=== PATIENT | male | born 1965 | race Caucasian/White ===

== ENCOUNTER 2017-07-19 15:11 | Inpatient (IN) | payer MEDICAID ==
[~2017-07-19] VITALS: Ht 177.8 cm; Wt 81.6 kg
[2017-07-19] MEDS ORDERED: ASPIRIN 81MG TABLET PO ONE (20:00)
[2017-07-19] MEDS ORDERED: NITROGLYCERIN OINT 1GM/INCH UDPKT TD ONE (20:00)
[2017-07-19 20:32] LABS: BASOPHILS % 0.5 % (0.0-2.0); EOSINOPHILS % 0.7 % (0.0-5.0); HEMATOCRIT. 49.5 % (42.0-52.0); HEMOGLOBIN. 16.7 g/dL (14.0-18.0); LYMPHOCYTES % 25.8 % (20.0-50.0); MEAN CORPUSCULAR HEMOGLOBIN 29.6 pg (28.0-32.0); MEAN CORPUSCULAR VOLUME 87.8 fL (80.0-94.0); MEAN PLATELET VOLUME 8.6 fl (7.4-10.4); MONOCYTES % 9.3 % (2.0-8.0); NEUTROPHILS % 63.7 % (40.0-76.0); PLATELET 195 x1000/uL (130-400); RED BLOOD CELL COUNT 5.64 mill/uL (4.7-6.1); RED CELL DISTRIBUTION WIDTH 13.4 % (11.6-14.6)
[2017-07-19 20:39] LABS: D-DIMER 0.32 mg/L FEU (<0.50); INR 1.1; PROTHROMBIN TIME 10.9 sec (9.4-11.6)
[2017-07-19 20:40] LABS: CARBON DIOXIDE 28 mEq/L (21-32); CHLORIDE 106 mEq/L (98-107); ETHANOL BLOOD < 10 mg/dL
[2017-07-19 20:45] LABS: TROPONIN I < 0.02 ng/mL (0.00-0.04)
[2017-07-19 22:37] LABS: *AMPHETAMINES SCREEN URINE NEGATIVE (NEGATIVE); *BARBITURATES SCREEN URINE NEGATIVE (NEGATIVE); *BENZODIAZEPINES SCREEN URINE NEGATIVE (NEGATIVE); *COCAINE SCREEN URINE NEGATIVE (NEGATIVE); CANNABINOID URINE SCREEN NEGATIVE (NEGATIVE); METHADONE URINE SCREEN NEGATIVE (NEGATIVE); OPIATES URINE SCREEN NEGATIVE (NEGATIVE); PHENCYCLIDINE URINE SCREEN NEGATIVE (NEGATIVE)
[2017-07-19] MEDS ORDERED: IPRATROPIUM/ALBUTEROL 0.5-3(2.5)MG/3ML NEB INH PRN (23:45)
[2017-07-19] MEDS ORDERED: ONDANSETRON HCL 4MG/2ML VIAL IV PRN (23:45)
[2017-07-19] MEDS ORDERED: MAGNESIUM/ALUMINUM HYDROXIDE/SIMETHICONE 30ML UDC PO PRN (23:45)
[2017-07-19] MEDS ORDERED: ACETAMINOPHEN 325MG TABLET PO PRN (23:45)
[2017-07-19] MEDS ORDERED: CLONIDINE 0.1MG TABLET PO PRN (23:45)
[2017-07-19] MEDS ORDERED: GUAIFENESIN 200MG/10ML SUGAR FREE UDC PO PRN (23:45)
[2017-07-20] VITALS (7 sets, daily range): BP systolic 97–138; BP diastolic 58–88
[2017-07-20 00:36] LABS: CHLORIDE 106 mEq/L (98-107)
[2017-07-20 00:42] LABS: CARBON DIOXIDE 29 mEq/L (21-32)
[2017-07-20] MEDS: HYDROCODONE/ACETAMINOPHEN 5/325MG TABLET PO PRN ×2 (03:46→08:54)
[2017-07-20 08:36] LABS: CREATINE KINASE MB FRACTION 0.9 ng/mL (0.5-3.6)
[2017-07-20] MEDS: ASPIRIN 81MG EC TABLET PO SCH (08:50)
[2017-07-20] MEDS: ENOXAPARIN 40MG/0.4ML SYR SUBCUT SCH (08:55)
[2017-07-20] MEDS ORDERED: INFLUENZA VIRUS VACCINE 0.5ML SYR IM ONE (12:00)
[2017-07-20] MEDS ORDERED: PNEUMOCOCCAL 23-VAL P-SAC VAC 0.5 ML IM ONE (12:00)
[2017-07-20 16:42] LABS: CREATINE KINASE MB FRACTION 0.7 ng/mL (0.5-3.6)
[2017-07-21] VITALS: BP 142/94
[2017-07-21 04:00] VITALS: BP 130/90
[2017-07-21 07:40] LABS: BASOPHILS % 0.5 % (0.0-2.0); EOSINOPHILS % 0.5 % (0.0-5.0); HEMATOCRIT. 51.2 % (42.0-52.0); HEMOGLOBIN. 17.5 g/dL (14.0-18.0); LYMPHOCYTES % 18.3 % (20.0-50.0); MEAN CORPUSCULAR HEMOGLOBIN 29.9 pg (28.0-32.0); MEAN CORPUSCULAR VOLUME 87.4 fL (80.0-94.0); MONOCYTES % 9.6 % (2.0-8.0); NEUTROPHILS % 71.1 % (40.0-76.0); PLATELET 204 x1000/uL (130-400); RED BLOOD CELL COUNT 5.85 mill/uL (4.7-6.1); RED CELL DISTRIBUTION WIDTH 13.5 % (11.6-14.6)
[2017-07-21 08:00] VITALS: BP 127/82
[2017-07-21 08:32] LABS: CARBON DIOXIDE 24 mEq/L (21-32); CHLORIDE 107 mEq/L (98-107)
[2017-07-21] MEDS: ENOXAPARIN 40MG/0.4ML SYR SUBCUT SCH (08:45)
[2017-07-21] MEDS: ASPIRIN 81MG EC TABLET PO SCH (08:45)
[2017-07-21] MEDS: HYDROCODONE/ACETAMINOPHEN 5/325MG TABLET PO PRN (08:56)
[2017-07-21 12:00] VITALS: BP 97/84
== END 2017-07-21 16:00 | disposition home or self-care (01) | DRG 203 ==
LOC: ER 17:30 → 5WST 22:21 → EDBEDREQTM 22:28 → EDBEDREQ 22:28 → ENRESERV 23:18
PROVIDERS: ADMIT Internal Medicine; ATTEND Internal Medicine
DX: R07.89 Other chest pain (principal); I10 Essential (primary) hypertension
CPT/HCPCS: 36415; 71045; 80048; 80053; 80061; 80305; 82550; 82553; 83690; 83880; 84443; 84484; 85025; 85379; 85610; 87804; 90686; 90732; 93005; 93308; 93970; 99285; G0482; J1650; J7620

== ENCOUNTER 2024-03-04 10:37 | Inpatient (IN) | payer MEDICAID, OTHER ==
[~2024-03-04] VITALS: Ht 172.7 cm; Wt 78.0 kg
[2024-03-04 11:38] LABS: BASOPHILS % 0.6 % (0.0-2.0); EOSINOPHILS % 0.4 % (0.0-5.0); HEMATOCRIT. 49.1 % (42.0-52.0); HEMOGLOBIN. 16.1 g/dL (14.0-18.0); LYMPHOCYTES % 8.5 % (20.0-50.0); MEAN CORPUSCULAR HEMOGLOBIN 29.4 pg (28.0-32.0); MEAN CORPUSCULAR HGB CONC 32.8 g/dL (31.0-37.0); MEAN CORPUSCULAR VOLUME 89.6 fL (80.0-94.0); MEAN PLATELET VOLUME 9.5 fl (7.4-10.4); MONOCYTES % 6.3 % (2.0-8.0); NEUTROPHILS % 84.2 % (40.0-76.0); PLATELET 198 x1000/uL (130-400); RED BLOOD CELL COUNT 5.48 mill/uL (4.7-6.1); WHITE BLOOD COUNT 10.2 x1000/uL (4.5-11.0)
[2024-03-04 11:40] LABS: CHLORIDE 109 mEq/L (98-107); POTASSIUM 3.7 mEq/L (3.5-5.1); SODIUM 140 mEq/L (136-145)
[2024-03-04 11:42] LABS: CALCIUM 9.7 mg/dL (8.7-10.4); CARBON DIOXIDE 25 mEq/L (21-32)
[2024-03-04 11:45] LABS: INR 0.9; PROTHROMBIN TIME 10.6 sec (9.6-11.0)
[2024-03-04 11:47] LABS: CREATININE 0.9 mg/dL (0.6-1.3); GLUCOSE 103 mg/dL (70-105); UREA NITROGEN BLOOD 15 mg/dL (9-23)
[2024-03-04] MEDS: MORPHINE SULFATE 4 MG/ML INJ (FOR IV/IM USE) IV ONE (11:48)
[2024-03-04] MEDS: SODIUM CHLORIDE 0.9% 1,000 ML IV ONE (11:49)
[2024-03-04] MEDS ORDERED: NALOXONE HCL 0.4MG/ML VIAL IV PRN (18:15)
[2024-03-04] MEDS: MORPHINE SULFATE 2 MG/ML INJ (NOT FOR IM USE) IV PRN (18:19)
[2024-03-04 20:00] VITALS: BP 160/84; PULSE 71; RESP 18; TEMP 36.28068; O2SAT 97
[2024-03-04 21:00] VITALS: BP 160/84; PULSE 71; RESP 18; TEMP 36.28068; TEMP 36.3068; O2SAT 97
[2024-03-05] VITALS: BP 132/83; PULSE 70; RESP 18; TEMP 36.16956; O2SAT 95
[2024-03-05 04:00] VITALS: BP_SYST 132; BP_SYST 144; BP_DIAS 80; BP_DIAS 83; PULSE 73; RESP 18; TEMP 36.22512; O2SAT 95; O2SAT 98
[2024-03-05 08:00] VITALS: BP 120/80; PULSE 73; RESP 20; TEMP 36.6696; O2SAT 100
[2024-03-05] MEDS ORDERED: VANCOMYCIN HCL 1GM VIAL ONE (09:17)
[2024-03-05] MEDS ORDERED: POLYMYXIN B SULFATE 500000 UNITS/VIAL ONE (09:17)
[2024-03-05] MEDS ORDERED: LIDOCAINE HCL/EPINEPHRINE 1%-EPI 1:100,000 20ML VIAL ONE (09:18)
[2024-03-05] MEDS ORDERED: ONDANSETRON HCL 4MG/2ML INJ IV PRN ×2 (11:45→12:00)
[2024-03-05] MEDS ORDERED: FENTANYL CITRATE/PF 50MCG/ML 2ML VIAL IV PRN (11:45)
[2024-03-05] MEDS ORDERED: HYDROMORPHONE HCL/PF 1MG/ML INJ IV PRN (11:45)
[2024-03-05] MEDS ORDERED: DEXAMETHASONE 4MG/ML 1ML VIAL ONE (11:47)
[2024-03-05] MEDS ORDERED: ONDANSETRON HCL 4MG/2ML INJ ONE (11:47)
[2024-03-05] MEDS ORDERED: MIDAZOLAM HCL 2 MG/2 ML VIAL ONE (11:48)
[2024-03-05] MEDS ORDERED: FENTANYL CITRATE/PF 50MCG/ML 2ML VIAL ONE (11:48)
[2024-03-05] MEDS ORDERED: PROPOFOL 200MG/20ML VIAL IV ONE ×2 (11:48→12:21)
[2024-03-05 12:00] VITALS: BP 136/82; PULSE 73; RESP 20; TEMP 36.6696; O2SAT 97
[2024-03-05] MEDS: MEPERIDINE HCL/PF 25MG/ML CPJ IV NR (14:22)
[2024-03-05 16:00] VITALS: BP 149/87; PULSE 86; RESP 20; TEMP 37.05852; O2SAT 96
[2024-03-05] MEDS: HYDROMORPHONE HCL/PF 2MG/ML INJ IV PRN (17:12)
[2024-03-05 20:00] VITALS: BP 127/67; PULSE 81; RESP 21; TEMP 37.05852; O2SAT 100
[2024-03-05] MEDS: CEFAZOLIN 1000MG PREMIX 50 ML IV SCH (20:20)
[2024-03-06 07:29] LABS: BASOPHILS % 0.1 % (0.0-2.0); EOSINOPHILS % 0.1 % (0.0-5.0); HEMATOCRIT. 40.7 % (42.0-52.0); HEMOGLOBIN. 13.8 g/dL (14.0-18.0); LYMPHOCYTES % 7.2 % (20.0-50.0); MEAN CORPUSCULAR HEMOGLOBIN 30.5 pg (28.0-32.0); MEAN CORPUSCULAR HGB CONC 33.9 g/dL (31.0-37.0); MEAN CORPUSCULAR VOLUME 89.8 fL (80.0-94.0); MEAN PLATELET VOLUME 9.8 fl (7.4-10.4); MONOCYTES % 13.7 % (2.0-8.0); NEUTROPHILS % 78.9 % (40.0-76.0); PLATELET 152 x1000/uL (130-400); RED BLOOD CELL COUNT 4.53 mill/uL (4.7-6.1); WHITE BLOOD COUNT 11.1 x1000/uL (4.5-11.0)
[2024-03-06 08:00] VITALS: BP 122/79; PULSE 84; RESP 19; TEMP 36.16956; O2SAT 92
[2024-03-06] MEDS: ENOXAPARIN 40MG/0.4ML SYR SUBCUT SCH (08:20)
[2024-03-06] MEDS: HYDROCODONE/ACETAMINOPHEN 5/325MG TABLET PO PRN ×2 (08:21→14:29)
[2024-03-06 12:00] VITALS: BP 141/76; PULSE 95; RESP 20; TEMP 37.11408; O2SAT 97
[2024-03-06 16:00] VITALS: BP 119/66; PULSE 90; RESP 20; TEMP 36.44736; O2SAT 93
[2024-03-06 20:00] VITALS: BP 120/80; PULSE 65; RESP 18; TEMP 37.28076; O2SAT 97
[2024-03-07] VITALS (7 sets, daily range): BP systolic 116–127; BP diastolic 64–79; PULSE 81–94; RESP 16–21; TEMP 36.28068–38.892; O2SAT 96–98
[2024-03-07 07:21] LABS: HEMATOCRIT. 39.9 % (42.0-52.0); HEMOGLOBIN. 13.4 g/dL (14.0-18.0); MEAN CORPUSCULAR HEMOGLOBIN 29.9 pg (28.0-32.0); MEAN CORPUSCULAR HGB CONC 33.4 g/dL (31.0-37.0); MEAN CORPUSCULAR VOLUME 89.4 fL (80.0-94.0); MEAN PLATELET VOLUME 9.6 fl (7.4-10.4); PLATELET 161 x1000/uL (130-400); RED BLOOD CELL COUNT 4.47 mill/uL (4.7-6.1); RED CELL DISTRIBUTION WIDTH 13.7 % (11.6-14.6); WHITE BLOOD COUNT 9.7 x1000/uL (4.5-11.0)
[2024-03-07 07:31] LABS: DIFFERENTIAL COMMENT 1
[2024-03-07 16:02] LABS: PLATELET ESTIMATE NORMAL
[2024-03-08] VITALS: BP 126/64; RESP 19; TEMP 36.55848; O2SAT 99
[2024-03-08 04:00] VITALS: BP 124/78; RESP 18; TEMP 36.61404; O2SAT 100
[2024-03-08 06:54] LABS: HEMATOCRIT. 36.8 % (42.0-52.0); HEMOGLOBIN. 12.5 g/dL (14.0-18.0); MEAN CORPUSCULAR HEMOGLOBIN 30.2 pg (28.0-32.0); MEAN CORPUSCULAR HGB CONC 33.9 g/dL (31.0-37.0); MEAN PLATELET VOLUME 9.5 fl (7.4-10.4); PLATELET 174 x1000/uL (130-400); RED BLOOD CELL COUNT 4.13 mill/uL (4.7-6.1); RED CELL DISTRIBUTION WIDTH 13.7 % (11.6-14.6)
[2024-03-08 07:13] LABS: DIFFERENTIAL COMMENT 1
[2024-03-08 08:00] VITALS: BP 122/68; PULSE 78; RESP 18; TEMP 36.72516; O2SAT 97
[2024-03-08 12:00] VITALS: BP 130/72; PULSE 78; RESP 18; TEMP 37.00296; O2SAT 100
[2024-03-08 13:41] LABS: PLATELET ESTIMATE NORMAL
[2024-03-08 16:00] VITALS: BP 129/67; PULSE 81; RESP 20; TEMP 36.50292; O2SAT 99
[2024-03-08 20:00] VITALS: BP 127/79; PULSE 93; RESP 18; TEMP 37.66968; O2SAT 95
[2024-03-09] VITALS: BP 121/82; PULSE 89; RESP 18; TEMP 37.16964; O2SAT 96
[2024-03-09 04:00] VITALS: BP 131/90; PULSE 92; RESP 18; TEMP 37.44744; O2SAT 96
[2024-03-09 08:00] VITALS: BP 138/82; PULSE 89; RESP 21; TEMP 36.28068; O2SAT 99
[2024-03-09 12:00] VITALS: BP 140/90; PULSE 75; RESP 19; TEMP 37.11408; O2SAT 95
[2024-03-09] MEDS ORDERED: HYDR-4001 PO (12:39)
[2024-03-09 12:46] VITALS: BP 140/90; PULSE 75; TEMP 98.8; O2SAT 95
[2024-03-10] MEDS ORDERED: HYDR-4001 MT (14:25)
== END 2024-03-09 16:23 | disposition home health service (06) | DRG 323 ==
LOC: ER 10:37 → 5WST 15:32 → EDBEDREQ 15:36 → 6WST 20:20
PROVIDERS: ADMIT Internal Medicine; ATTEND Internal Medicine
PROC: 0SRR0JZ Replacement of Right Hip Joint, Femoral Surface with Synthetic Substitute, Open Approach (ICD-10-PCS; principal; 2024-03-05)
DX: S72.001A Fracture of unspecified part of neck of right femur, initial encounter for closed fracture (principal); D64.9 Anemia, unspecified; Z82.49 Family history of ischemic heart disease and other diseases of the circulatory system; D72.829 Elevated white blood cell count, unspecified; W11.XXXA Fall on and from ladder, initial encounter; R73.9 Hyperglycemia, unspecified; R53.81 Other malaise; R26.9 Unspecified abnormalities of gait and mobility; Y92.89 Other specified places as the place of occurrence of the external cause; Y99.8 Other external cause status; Y93.89 Activity, other specified
CPT/HCPCS: 36415; 71045; 72170; 73502; 73552; 73560; 73590; 80048; 82962; 85025; 86850; 86900; 88304; 88305; 88311; 93005; 93970; 97110; 97116; 97162; 97166; 97530; 97535; 99285; J0690; J1100; J1170; J1650; J2175; J2250; J2270; J2405; J2704; J3010; J3370; J3490; J7030; L1830; C1776